=== PATIENT | female | born 1990 | race Caucasian/White ===

== ENCOUNTER 2017-08-21 11:13 | Emergency (ER) | payer BC ==
[~2017-08-21] VITALS: Ht 165.1 cm; Wt 76.2 kg
[2017-08-21] MEDS ORDERED: IBUP800 PO (11:55)
[2017-08-21] MEDS ORDERED: CRUTCH3 XX (11:55)
[2017-08-21] MEDS ORDERED: IBUP600 PO (12:37)
[2017-08-21] MEDS ORDERED: HYDHCL25 PO (12:37)
== END 2017-08-21 12:53 | disposition home or self-care (01) ==
LOC: ER 11:13
DX: R07.9 Chest pain, unspecified (principal); M25.569 Pain in unspecified knee
CPT/HCPCS: 71046; 93005; 93010; 99283

== ENCOUNTER 2023-02-11 12:56 | Day surgery (SDC) | payer OTHER ==
[~2023-02-11] VITALS: Ht 165.1 cm; Wt 85.1 kg
[2023-02-11] VITALS (10 sets, daily range): BP systolic 108–123; BP diastolic 61–79
[~2023-02-11 12:56] MED LIST: CRUTCH3 XX; HYDHCL25 PO; IBUP600 PO; IBUP800 PO
--- NOTE | 2023-02-11 13:32 | NUR ---
Ambulatory in Day Surgery History, Chart, Medications and Allergies reviewed before start of procedure.Patient confirms NPO status and agrees with scheduled surgery. Patient reports completing Chlorhexadine shower X2 prior to admission to hospital.Surgical site prepped with 2% Chlorhexidine cloth wipe. Patient States Post-Procedure ride home has been arranged.
--- NOTE | 2023-02-11 17:29 | NUR ---
Reviewed discharge instructions with pt and s/o. Both verbalize understanding. Pt able to take po without difficutly. Assisted pt to dangle at bedside. Pt reports mild dizziness and the onset of nausea. Pt med with Zofran 4 mg IVP x1.
--- NOTE | 2023-02-11 17:45 | NUR ---
Pt nausea resolved after Zofran given. Discharged to home-out via wheelchair with belongings and discharge instructions on hand.
== END 2023-02-11 22:34 | disposition home or self-care (01) ==
LOC: ORSCMMR 12:56 → ORD 13:15 → ORSCMMR 14:00 → ORD 14:15 → ORSCMMR 22:34
PROVIDERS: Obstetrics & Gynecology
PROC: 0UT74ZZ Resection of Bilateral Fallopian Tubes, Percutaneous Endoscopic Approach (ICD-10-PCS; principal; 2023-02-11 16:00)
DX: Z30.2 Encounter for sterilization (principal); N80.329 Endometriosis of the posterior cul-de-sac, unspecified depth
CPT/HCPCS: 84703; 88302; A9270; J0690; J1100; J1885; J2405; J2704; J3010; J7120

== ENCOUNTER → 2023-05-03 | Outpatient (CLI) | payer OTHER ==
[2023-05-04 10:33] LABS: Candida species (DNA Probe) Negative (NEGATIVE); G. vaginalis (DNA Probe) Negative (NEGATIVE); T. vaginalis (DNA Probe) Negative (NEGATIVE)
== END ==
LOC: LAB 15:53 → LAB SHORT 15:53
PROVIDERS: Family Medicine
DX: N89.8 Other specified noninflammatory disorders of vagina (principal)
CPT/HCPCS: 87480; 87510; 87660